=== PATIENT | male | born 1990 | race Caucasian/White ===

== ENCOUNTER 2016-05-31 02:00 | Emergency (ER) | payer BC ==
[~2016-05-31] VITALS: Ht 162.6 cm; Wt 70.5 kg
[2016-05-31 02:02] VITALS: TEMP 97.4
[2016-05-31 03:54] VITALS: BP 107/72; PULSE 122
== END 2016-05-31 04:08 | disposition home or self-care (01) ==
LOC: COL.ER 02:00
DX: S09.90XA Unspecified injury of head, initial encounter (principal); S01.81XA Laceration without foreign body of other part of head, initial encounter; X58.XXXA Exposure to other specified factors, initial encounter

== ENCOUNTER → 2016-06-06 | Emergency (ER) | payer BC ==
[2016-06-06 09:16] VITALS: BP 132/92; PULSE 85; TEMP 97.4
== END ==
LOC: COL.ER 09:11
DX: Z48.02 Encounter for removal of sutures (principal)